=== PATIENT | male | born 1945 | race Caucasian/White ===

== ENCOUNTER 2017-06-06 12:36 | Inpatient (IN) | payer MEDICARE, OTHER ==
[~2017-06-06] VITALS: Ht 162.6 cm; Wt 69.4 kg
[2017-06-06] MEDS ORDERED: IV NS 0.9% 500 ML BAG IV ONE (13:00)
[2017-06-06 13:08] LABS: BASOPHILS % (AUTO) 0.4 % (0.0-2.0); EOSINOPHILS # (AUTO) 0.7 /CMM (0.0-0.7); EOSINOPHILS % (AUTO) 5.7 % (0.0-6.0); HEMATOCRIT 38 % (39-51); HEMOGLOBIN 12.3 g/dL (13.5-17.5); LYMPHOCYTES # (AUTO) 3.9 /CMM (0.8-4.8); LYMPHOCYTES % (AUTO) 32.8 % (20.0-44.0); MEAN CORPUSCULAR HEMOGLOBIN 29 PG (26.0-33.0); MEAN CORPUSCULAR HGB CONC 32 g/dl (31.0-36.0); MEAN CORPUSCULAR VOLUME 90 fL (80-96); MONOCYTES # (AUTO) 0.9 /CMM (0.1-1.30); MONOCYTES % (AUTO) 7.4 % (2.0-12.0); NEUTROPHILS # (AUTO) 6.3 /CMM (1.8-8.9); NEUTROPHILS % (AUTO) 53.7 % (43.0-81.0); PLATELET COUNT (AUTO) 165 /CMM (150-450); RDW COEFFICIENT OF VARIATION 14.1 (11.5-15.0); RED BLOOD CELL COUNT(AUTO) 4.22 MIL/uL (4.5-6.0); WHITE BLOOD COUNT (AUTO) 11.8 K/uL (4.3-11.0)
[2017-06-06] MEDS ORDERED: CEFTRIAXONE 1GM BAG (ER ONLY) 50 ML IV ONE ×2 (13:21→13:30)
[2017-06-06 13:22] LABS: CARBON DIOXIDE 23 mmol/L (21-32); CHLORIDE 103 mmol/L (98-107); CREATININE 1.1 mg/dL (0.6-1.3); GLUCOSE 156 mg/dL (74-106); POTASSIUM 3.9 mmol/L (3.5-5.1); SODIUM SERUM 139 mmol/L (136-145); UREA NITROGEN, BLOOD 9 mg/dL (7-18)
[2017-06-06 13:28] LABS: ALANINE AMINOTRANSFERASE 23 U/L (12-78); ALBUMIN 3.5 g/dL (3.4-5.0); ALKALINE PHOSPHATASE 98 U/L (46-116); ASPARTATE AMINOTRANSFERASE 26 U/L (15-37); BILIRUBIN,DIRECT 0.1 mg/dL (0.0-0.2); BILIRUBIN,TOTAL 0.7 mg/dL (0.2-1.0); TOTAL PROTEIN, SERUM 7.9 g/dL (6.4-8.2)
[2017-06-06 13:30] LABS: TROPONIN I < 0.017 ng/mL (0.00-0.056)
[2017-06-06] MEDS ORDERED: IV NS 0.9% 1,000 ML BAG IV ONE (13:30)
[2017-06-06 13:33] LABS: PROTHROMBIN TIME 10.4 SECS (9.5-12.7)
[2017-06-06 13:51] LABS: THYROID STIMULATING HORMONE 4.323 uIU/mL (0.358-3.74)
[2017-06-06] MEDS ORDERED: METO25TA6 PO (14:53)
[2017-06-06] MEDS ORDERED: NIAC500T2 PO (14:53)
[2017-06-06] MEDS ORDERED: BISA10SU8 RC (14:53)
[2017-06-06] MEDS ORDERED: ASPI81TA2 PO (14:53)
[2017-06-06] MEDS ORDERED: SIMV20TA2 PO (14:53)
[2017-06-06] MEDS ORDERED: MULT-213 PO (14:53)
[2017-06-06] MEDS ORDERED: ACET-2605 PO (14:53)
[2017-06-06] MEDS ORDERED: ACET-868 PO (14:53)
[2017-06-06] MEDS ORDERED: LISI-607 PO (14:53)
[2017-06-06] MEDS ORDERED: OMEP20TA68 PO (14:53)
[2017-06-06] MEDS ORDERED: INSU3INS6 SQ (14:53)
[2017-06-06] MEDS ORDERED: GLIP10TA11 PO (14:53)
[2017-06-06] MEDS ORDERED: SENN-18 PO (14:53)
[2017-06-06] MEDS ORDERED: LEVO50TA8 PO (14:53)
[2017-06-06] MEDS ORDERED: MAGN400O6 PO (14:53)
[2017-06-06] MEDS ORDERED: ACETAMINOPHEN 325 MG TABLET PO PRN (16:00)
[2017-06-06] MEDS ORDERED: ONDANSETRON HCL/PF 4 MG/2 ML VIAL IVP PRN (16:00)
[2017-06-06] MEDS ORDERED: Z GUARD REMEDY 2 OZ OINT TP PRN (16:00)
[2017-06-06] MEDS ORDERED: BISACODYL SUPP (10 MG) 10 MG/SUPP.RECT SUPP.RECT RC PRN (16:00)
[2017-06-06] MEDS ORDERED: DEXTROSE 50%-WATER 50 ML DISP.SYRIN IV PRN (16:30)
[2017-06-06] MEDS: IV NS 0.9% 1,000 ML IV PRN (17:06)
[2017-06-06] MEDS: glipiZIDE 10 MG TABLET PO SCH (17:06)
[2017-06-06] MEDS: METOPROLOL TARTRATE 25 MG TABLET PO SCH (17:06)
[2017-06-06] MEDS: BLOOD SUGAR DIAGNOSTIC 1 EACH STRIP IN SCH ×2 (17:14→23:42)
[2017-06-06 17:30] VITALS: BP 119/68
[2017-06-06] MEDS ORDERED: VANCOMYCIN 1 GM in IV D5W 250 ML IV ONE (18:30)
[2017-06-06] MEDS ORDERED: FEE PK DOSING 1 MIN EA MC ONE (18:41)
[2017-06-06 20:00] VITALS: BP_SYST 117; BP_SYST 122; BP_DIAS 53; BP_DIAS 57
[2017-06-06] MEDS: VANCOMYCIN 0.75 GM in IV D5W 250 ML IV SCH (20:33)
[2017-06-06] MEDS: INSULIN DETEMIR 100 UNIT/ML CARTRIDGE SQ SCH (22:00)
[2017-06-06] MEDS: SIMVASTATIN 20 MG TABLET PO SCH (22:12)
[2017-06-06] MEDS: INSULIN REGULAR, HUMAN 100 UNIT/ML 3 ML VIAL SQ PRN (23:47)
[2017-06-07 00:12] LABS: APPEARANCE,URINE CLEAR (CLEAR); BILIRUBIN,URINE NEGATIVE (NEGATIVE); BLOOD, URINE 2+ Ery/uL (NEGATIVE); COLOR,URINE YELLOW (YELLOW); KETONES,URINE NEGATIVE (NEGATIVE); LEUKOCYTE ESTERASE ,URINE 1+ (NEGATIVE); NITRITE, URINE NEGATIVE (NEGATIVE); PROTEIN,URINE NEGATIVE (NEGATIVE); UGLUCOSE NEGATIVE (NEGATIVE); UROBILINOGEN,URINE 0.2 EU/dL (0.2)
[2017-06-07 00:34] LABS: BACTERIA,URINE None seen /HPF (None Seen); SQUAMOUS EPITHELIAL CELL,UR Few /HPF (None Seen)
[2017-06-07 04:00] VITALS: BP 117/57
[2017-06-07] MEDS: IV NS 0.9% 1,000 ML IV PRN (06:04)
[2017-06-07] MEDS: BLOOD SUGAR DIAGNOSTIC 1 EACH STRIP IN SCH ×4 (06:04→23:39)
[2017-06-07 06:44] LABS: BASOPHILS % (AUTO) 0.4 % (0.0-2.0); EOSINOPHILS # (AUTO) 0.3 /CMM (0.0-0.7); EOSINOPHILS % (AUTO) 4.2 % (0.0-6.0); HEMATOCRIT 35 % (39-51); HEMOGLOBIN 11.5 g/dL (13.5-17.5); LYMPHOCYTES # (AUTO) 2.5 /CMM (0.8-4.8); LYMPHOCYTES % (AUTO) 31.3 % (20.0-44.0); MEAN CORPUSCULAR HEMOGLOBIN 30 PG (26.0-33.0); MEAN CORPUSCULAR HGB CONC 33 g/dl (31.0-36.0); MEAN CORPUSCULAR VOLUME 91 fL (80-96); MONOCYTES # (AUTO) 0.7 /CMM (0.1-1.30); MONOCYTES % (AUTO) 9.1 % (2.0-12.0); NEUTROPHILS # (AUTO) 4.4 /CMM (1.8-8.9); PLATELET COUNT (AUTO) 110 /CMM (150-450)
[2017-06-07 07:10] LABS: ALANINE AMINOTRANSFERASE 22 U/L (12-78); ALBUMIN 3.1 g/dL (3.4-5.0); ALKALINE PHOSPHATASE 81 U/L (46-116); ASPARTATE AMINOTRANSFERASE 28 U/L (15-37); BILIRUBIN,TOTAL 0.5 mg/dL (0.2-1.0); CALCIUM, SERUM 8.1 mg/dL (8.5-10.1); CARBON DIOXIDE 26 mmol/L (21-32); CHLORIDE 108 mmol/L (98-107); CREATININE 0.7 mg/dL (0.6-1.3); GLUCOSE 166 mg/dL (74-106); MAGNESIUM 1.7 mg/dL (1.8-2.4); PHOSPHORUS 3.6 mg/dL (2.5-4.9); POTASSIUM 3.2 mmol/L (3.5-5.1); SODIUM SERUM 143 mmol/L (136-145); TOTAL PROTEIN, SERUM 7.6 g/dL (6.4-8.2); UREA NITROGEN, BLOOD 7 mg/dL (7-18)
[2017-06-07 07:23] LABS: CHOLESTEROL 131 mg/dL (<200); HDL CHOLESTEROL 35 mg/dL (40-60); LDL 76 mg/dL (0-99); THYROID STIMULATING HORMONE 2.737 uIU/mL (0.358-3.74); TRIGLYCERIDES 124 mg/dL (30-150)
[2017-06-07 08:00] VITALS: BP 130/47
[2017-06-07 08:02] LABS: IRON, SERUM 46 ug/dl (50-175); TOTAL IRON BINDING CAPACITY 342 ug/dl (250-450)
[2017-06-07] MEDS: LEVOTHYROXINE SODIUM 50 MCG TABLET PO SCH (08:35)
[2017-06-07] MEDS: SENNOSIDES 8.6 MG TABLET PO SCH (08:35)
[2017-06-07] MEDS: ASPIRIN 81 MG TAB.CHEW PO SCH (08:35)
[2017-06-07] MEDS: glipiZIDE 10 MG TABLET PO SCH ×2 (08:35→16:36)
[2017-06-07] MEDS: PANTOPRAZOLE 40 MG TABLET.DR PO SCH (08:36)
[2017-06-07] MEDS: VANCOMYCIN 0.75 GM in IV D5W 250 ML IV SCH ×2 (08:46→20:03)
[2017-06-07] MEDS: LISINOPRIL (5MG) 5 MG TABLET PO SCH (09:00)
[2017-06-07] MEDS: METOPROLOL TARTRATE 25 MG TABLET PO SCH ×2 (09:00→16:40)
[2017-06-07 12:00] VITALS: BP 127/54
[2017-06-07] MEDS: POTASSIUM CHLORIDE 20 MEQ TAB.PRT.SR PO SCH ×2 (12:00→13:13)
[2017-06-07] MEDS: Magnesium 1GM/D5W 100ML PREMIX 100 ML IV SCH ×2 (12:01→13:13)
[2017-06-07] MEDS: INSULIN REGULAR, HUMAN 100 UNIT/ML 3 ML VIAL SQ PRN (12:08)
[2017-06-07] MEDS: CEFTRIAXONE 1 G in IV D5W 50 ML IV SCH (14:22)
[2017-06-07 16:00] VITALS: BP 121/66
[2017-06-07] MEDS: LACTOBACILLUS RHAMNOSUS GG 1 EACH CAP.SPRINK PO SCH (16:36)
[2017-06-07 20:00] VITALS: BP 130/68
[2017-06-07] MEDS: SIMVASTATIN 20 MG TABLET PO SCH (21:39)
[2017-06-07] MEDS: INSULIN DETEMIR 100 UNIT/ML CARTRIDGE SQ SCH (22:00)
[2017-06-08] MEDS: IV NS 0.9% 1,000 ML IV PRN (05:26)
[2017-06-08] MEDS: BLOOD SUGAR DIAGNOSTIC 1 EACH STRIP IN SCH ×3 (05:30→17:32)
[2017-06-08 07:30] LABS: CALCIUM, SERUM 7.9 mg/dL (8.5-10.1); CARBON DIOXIDE 27 mmol/L (21-32); CHLORIDE 112 mmol/L (98-107); CREATININE 0.7 mg/dL (0.6-1.3); GLUCOSE 86 mg/dL (74-106); MAGNESIUM 2.1 mg/dL (1.8-2.4); POTASSIUM 3.7 mmol/L (3.5-5.1); SODIUM SERUM 146 mmol/L (136-145); UREA NITROGEN, BLOOD 4 mg/dL (7-18)
[2017-06-08 08:00] VITALS: BP 129/58
[2017-06-08] MEDS: LACTOBACILLUS RHAMNOSUS GG 1 EACH CAP.SPRINK PO SCH ×2 (08:36→17:32)
[2017-06-08] MEDS: LEVOTHYROXINE SODIUM 50 MCG TABLET PO SCH (08:36)
[2017-06-08] MEDS: LISINOPRIL (5MG) 5 MG TABLET PO SCH (08:36)
[2017-06-08] MEDS: PANTOPRAZOLE 40 MG TABLET.DR PO SCH (08:36)
[2017-06-08] MEDS: SENNOSIDES 8.6 MG TABLET PO SCH (08:36)
[2017-06-08] MEDS: ASPIRIN 81 MG TAB.CHEW PO SCH (08:36)
[2017-06-08] MEDS: glipiZIDE 10 MG TABLET PO SCH ×2 (08:36→17:32)
[2017-06-08] MEDS: METOPROLOL TARTRATE 25 MG TABLET PO SCH ×2 (08:37→17:00)
[2017-06-08] MEDS: VANCOMYCIN 0.75 GM in IV D5W 250 ML IV SCH (08:44)
[2017-06-08 11:31] LABS: BASOPHILS # (AUTO) 0.1 /CMM (0.0-0.2); BASOPHILS % (AUTO) 0.6 % (0.0-2.0); EOSINOPHILS # (AUTO) 0.6 /CMM (0.0-0.7); EOSINOPHILS % (AUTO) 7.4 % (0.0-6.0); HEMATOCRIT 32 % (39-51); HEMOGLOBIN 10.9 g/dL (13.5-17.5); LYMPHOCYTES # (AUTO) 3.2 /CMM (0.8-4.8); MEAN CORPUSCULAR HEMOGLOBIN 31 PG (26.0-33.0); MEAN CORPUSCULAR HGB CONC 34 g/dl (31.0-36.0); MEAN CORPUSCULAR VOLUME 90 fL (80-96); MONOCYTES # (AUTO) 0.7 /CMM (0.1-1.30); PLATELET COUNT (AUTO) 110 /CMM (150-450); RDW COEFFICIENT OF VARIATION 14.9 (11.5-15.0); RED BLOOD CELL COUNT(AUTO) 3.59 MIL/uL (4.5-6.0); WHITE BLOOD COUNT (AUTO) 8.5 K/uL (4.3-11.0)
[2017-06-08] MEDS: CEFTRIAXONE 1 G in IV D5W 50 ML IV SCH (12:00)
[2017-06-08] MEDS: INSULIN REGULAR, HUMAN 100 UNIT/ML 3 ML VIAL SQ PRN ×2 (12:01→17:33)
[2017-06-08] MEDS ORDERED: CEPH-569 PO (15:04)
[2017-06-08 16:00] VITALS: BP 131/56
[2017-06-08 17:00] VITALS: BP 131/56
== END 2017-06-08 18:30 | DRG 70 ==
LOC: ER 12:37 → TELE 15:32 → MED 06-07 18:02
PROVIDERS: ADMIT Nurse Practitioner Acute Care; ATTEND Nurse Practitioner Acute Care
DX: G93.40 Encephalopathy, unspecified (principal); R53.2 Functional quadriplegia; E87.2 Acidosis; F03.90 Unspecified dementia, unspecified severity, without behavioral disturbance, psychotic disturbance, mood disturbance, and anxiety; E11.9 Type 2 diabetes mellitus without complications; I10 Essential (primary) hypertension; D72.829 Elevated white blood cell count, unspecified; G93.89 Other specified disorders of brain; Z86.73 Personal history of transient ischemic attack (TIA), and cerebral infarction without residual deficits; E03.9 Hypothyroidism, unspecified; E78.5 Hyperlipidemia, unspecified; I25.10 Atherosclerotic heart disease of native coronary artery without angina pectoris; H54.0 Blindness, both eyes; K21.9 Gastro-esophageal reflux disease without esophagitis; I70.0 Atherosclerosis of aorta; K59.00 Constipation, unspecified; M19.90 Unspecified osteoarthritis, unspecified site; Z66 Do not resuscitate; Z79.82 Long term (current) use of aspirin; Z87.440 Personal history of urinary (tract) infections; Z79.899 Other long term (current) drug therapy; Z93.1 Gastrostomy status; Z79.84 Long term (current) use of oral hypoglycemic drugs
CPT/HCPCS: 36415; 70450-TC; 71010-TC; 80048-TC; 80053-TC; 80061-TC; 80076-TC; 80202-TC; 81000-TC; 82962-TC; 83540-TC; 83605-TC; 83735-TC; 84100-TC; 84443-TC; 84484-TC; 85025-TC; 85730-TC; 87040-TC; 87081-TC; 87086-TC; A4606; J0696; J1815; J3370; J3475; J7030; J7040; J7050; J7060; Z7610

== ENCOUNTER 2017-07-16 14:04 | Inpatient (IN) | payer MEDICARE, OTHER ==
[~2017-07-16] VITALS: Ht 170.2 cm; Wt 67.1 kg
[~2017-07-16 14:04] MED LIST: ACET-2605 PO; ACET-868 PO; ASPI81TA2 PO; BISA10SU8 RC; CEPH-569 PO; GLIP10TA11 PO; INSU3INS6 SQ; LEVO50TA8 PO; LISI-607 PO; MAGN400O6 PO; METO25TA6 PO; MULT-213 PO; NIAC500T2 PO; OMEP20TA68 PO; SENN-18 PO; SIMV20TA2 PO
--- NOTE | 2017-07-16 14:19 | NUR ---
PT JENNIFER ([id number]) from [facility] for chief complaint of "more altered than usual" PER EMS, GLUCOSE CHECK READ " HI". PT CLINICAL PRESETNATION UPON ARRIVAL, AVERBAL, WITHDRAWS TO PAIN, NON DIAPHOERETIC, ST ON MONITOR HR 115, WITH GOOD RESP RATE & EFFORT. PER PAPER WORK PROVIDED BY FACILITY , PT IS DNR.
[2017-07-16] MEDS ORDERED: CANA100T PO (14:44)
[2017-07-16] MEDS ORDERED: BLOO-668 IN (14:44)
[2017-07-16] MEDS ORDERED: NA P133E RC (14:44)
[2017-07-16] MEDS ORDERED: INSU100V11 SQ (14:44)
[2017-07-16] MEDS ORDERED: ASCO500T9 PO (14:44)
[2017-07-16] MEDS ORDERED: AMIN30LI4 PO (14:44)
[2017-07-16] MEDS ORDERED: DULA0.75 SQ (14:44)
[2017-07-16] MEDS ORDERED: ZINC220C8 PO (14:44)
--- NOTE | 2017-07-16 15:11 | NUR ---
RAY AT BEDSIDE
--- NOTE | 2017-07-16 15:23 | NUR ---
CALLED [facility] TO GET INFORMATION ABOUT PT, SPOKE WITH GODWIN.
[2017-07-16 15:36] LABS: BASOPHILS # (AUTO) 0.2 /CMM (0.0-0.2); EOSINOPHILS % (AUTO) 0.2 % (0.0-6.0); HEMATOCRIT 48 % (39-51); HEMOGLOBIN 15.6 g/dL (13.5-17.5); LYMPHOCYTES # (AUTO) 4.6 /CMM (0.8-4.8); LYMPHOCYTES % (AUTO) 24.6 % (20.0-44.0); MEAN CORPUSCULAR HEMOGLOBIN 30 PG (26.0-33.0); MEAN CORPUSCULAR HGB CONC 32 g/dl (31.0-36.0); MEAN CORPUSCULAR VOLUME 92 fL (80-96); MONOCYTES # (AUTO) 1.7 /CMM (0.1-1.30); MONOCYTES % (AUTO) 9.1 % (2.0-12.0); NEUTROPHILS # (AUTO) 12.1 /CMM (1.8-8.9); NEUTROPHILS % (AUTO) 65.1 % (43.0-81.0); PLATELET COUNT (AUTO) 184 /CMM (150-450); RDW COEFFICIENT OF VARIATION 14.6 (11.5-15.0); RED BLOOD CELL COUNT(AUTO) 5.27 MIL/uL (4.5-6.0); WHITE BLOOD COUNT (AUTO) 18.6 K/uL (4.3-11.0)
[2017-07-16 15:48] LABS: INR 1.09 (0.87-1.13); PROTHROMBIN TIME 11.3 SECS (9.5-12.7)
[2017-07-16 15:52] LABS: ALANINE AMINOTRANSFERASE 27 U/L (12-78); ALBUMIN 3.5 g/dL (3.4-5.0); ALKALINE PHOSPHATASE 138 U/L (46-116); ASPARTATE AMINOTRANSFERASE 38 U/L (15-37); BILIRUBIN,DIRECT 0.1 mg/dL (0.0-0.2); BILIRUBIN,TOTAL 0.6 mg/dL (0.2-1.0); CALCIUM, SERUM 9.7 mg/dL (8.5-10.1); CARBON DIOXIDE 23 mmol/L (21-32); CHLORIDE 112 mmol/L (98-107); CREATININE 2.2 mg/dL (0.6-1.3); POTASSIUM 4.1 mmol/L (3.5-5.1); SODIUM SERUM 149 mmol/L (136-145); TOTAL PROTEIN, SERUM 9.3 g/dL (6.4-8.2); UREA NITROGEN, BLOOD 45 mg/dL (7-18)
[2017-07-16 15:53] LABS: TROPONIN I 0.188 ng/mL (0.00-0.056)
[2017-07-16 15:54] LABS: GLUCOSE 563 mg/dL (74-106)
--- NOTE | 2017-07-16 16:19 | NUR ---
PAGED FOR ADMISSION
--- NOTE | 2017-07-16 16:38 | NUR ---
RECEIVED CALL BACK FROM , PER GIVE PT TO [facility].
--- NOTE | 2017-07-16 16:39 | NUR ---
[facility] PAGED, DR.VU BRISENO
--- NOTE | 2017-07-16 17:45 | NUR ---
AWAITING FOR BED
--- NOTE | 2017-07-16 18:14 | NUR ---
REPORT GIVEN TO
--- NOTE | 2017-07-16 18:47 | NUR ---
PATIENT TRANSPORTED TO TELE. S
--- NOTE | 2017-07-16 19:25 | NUR ---
CHIEF ANALYTICS OFFICER OPENING NOTES: RECEIVED PT AND IS SITTING UP RIGHT IN BED. PT IS NOT ALERT AND IS NON-VERBAL. PT HAS BILATERAL BLINDNESS. PT SAYS A FEW WORDS BUT SPONTANEOUSLY. PT IS ON TELE MONITOR. CALL LIGHT WITHIN PT'S REACH. BED KEPT IN LOW, LOCKED POSITION, AND SIDE RAILS X 2 UP. NO S/S OF DISTRESS NOTED AT THIS TIME. BREATHING EVEN AND UNLABORED. PT HAS IV ON L WRIST, L FOREARM #20G, AND R HAND 22G. ALL IVS ARE PATENT AND INTACT. WAITING FOR PHARMACY TO VERIFY MEDS. WILL CONTINUE TO MONITOR PT.
--- NOTE | 2017-07-16 19:40 | NUR ---
RN ELIGIBILITY NOTES: CALLED PHARMACY TO VERIFY MED ORDERS. PHARMACY SAID THEY ARE BUSY AND WILL GET IT DONE BEFORE THEY LEAVE. THERE ARE 1700 ORDERS THAT WILL BE LATE ADMIN DUE TO THAT.
[2017-07-16 20:00] VITALS: BP 154/72
--- NOTE | 2017-07-16 22:38 | NUR ---
INSURANCE CUSTOMER SERVICE SPECIALIST NOTE: SPOKE TO DR. ROONEY AND INFORMED HER THAT PATIENT HAS BEEN LETHARGIC THROUGHOUT MY SHIFT AND THAT HE IS ON METOPROLOL. GOT ORDER FOR NG INSERTION AND TO GIVE MED THROUGH NG TUBE.
--- NOTE | 2017-07-16 22:55 | NUR ---
AUTOMATIC PRESSER NOTE: SPOKE TO DR ROONEY AND INFORMED OF BLOOD SUGAR 398 AND WOULD ONLY LIKE TO GIVE LEVEMIR 9 UNITS D/T PT NOT EATING AND BEING LETHARGIC. ALSO, SHE SAID NOT TO COVER THE REGULAR INSULIN JUST LEVEMIR 9 UNITS. ALSO, CONFIRMED THAT ALL MEDS TO BE GIVEN THROUGH NG TUBE.
--- NOTE | 2017-07-16 22:58 | NUR ---
PAINTER SHIPYARD NOTE: IT WAS SCANNED THAT LEVEMIR 18 UNITS WAS ADMINISTERED BUT PER DR. ROONEY, ONLY 9 UNITS OF THAT LEVEMIR IS TO BE GIVEN.
[2017-07-17] VITALS (7 sets, daily range): BP systolic 134–151; BP diastolic 62–75
--- NOTE | 2017-07-17 00:41 | NUR ---
SAUTE CHEF NOTES: DR. ROONEY ON FLOOR AND ATTEMPTED TO INSERT NG TUBE. ALSO, WAS UNSUCCESSFUL RNS TRIED TO INSERT NG TUBE PRIOR AND WAS UNSUCCESSFUL WELL. GOT ORDER FOR METOPROLOL 5MG IV Q6H FOR SBP >180 AND HR >100. OKAY TO NON ADMIN [address] ROONEY. ALSO, INFORMED HER ABOUT POLST AND FOR PT'S DNR STATUS AND OKAYED IT. WILL HAVE ANOTHER RN SIGN.
--- NOTE | 2017-07-17 06:38 | NUR ---
HVAC FIELD SERVICE TECHNICIAN NOTES: INFORMED DR. ROONEY ABOUT BLOOD SUGAR THIS MORNING OF 322. REMINDED DR. RIVERA THAT PT HAS A SWALLOW EVAL AT 8AM TODAY AND HAS NOT BEEN EATING OR TAKING ANYTHING BY MOUTH THROUGHOUT MY SHIFT. PT HAS BEEN LETHARGIC THROUGHOUT MY SHIFT. GOT ORDER TO GIVE HALF OF THE INTENDED DOSE FOR 322 WHICH IS 16 UNITS. THEREFORE, I WILL ONLY ADMINISTER 8 UNITS.
--- NOTE | 2017-07-17 07:10 | NUR ---
CLAY MINE CUTTING MACHINE OPERATOR CLOSING NOTES: ALL NEEDS WERE ATTENDED AND ANTICIPATED FOR. PT IS STILL NON-VERBAL BUT WILL NOD OR RESPOND IF SPOKEN TO IN UKRAINIAN. PT IS IN SEMI-CHIU'S POSITION. PT IS ON TELE MONITOR AND IS SR 92. CALL LIGHT WITHIN PT'S REACH. BED KEPT IN LOW, LOCKED POSITION, AND SIDE RAILS X 2 UP. NO S/S OF DISTRESS NOTED AT THIS TIME. BREATHING EVEN AND UNLABORED. PT HAS IV ON L WRIST, L FOREARM #20G, AND R HAND 22G. ALL IVS ARE PATENT AND INTACT. PT IS CURRENTLY BEING INFUSED WITH IV D5 1/2 NS AT 75ML/ HR. ENDORSED TO AM NURSE FOR ASHLEY.
[2017-07-17 07:28] LABS: ALANINE AMINOTRANSFERASE 28 U/L (12-78); ALKALINE PHOSPHATASE 124 U/L (46-116); ASPARTATE AMINOTRANSFERASE 38 U/L (15-37); BILIRUBIN,TOTAL 0.6 mg/dL (0.2-1.0); CALCIUM, SERUM 8.6 mg/dL (8.5-10.1); CARBON DIOXIDE 23 mmol/L (21-32); CHLORIDE 122 mmol/L (98-107); CREATININE 1.2 mg/dL (0.6-1.3); MAGNESIUM 2.1 mg/dL (1.8-2.4); PHOSPHORUS 4.2 mg/dL (2.5-4.9); POTASSIUM 3.7 mmol/L (3.5-5.1); TOTAL PROTEIN, SERUM 8.1 g/dL (6.4-8.2); UREA NITROGEN, BLOOD 27 mg/dL (7-18)
--- NOTE | 2017-07-17 07:30 | NUR ---
straight knife machine cutter Initial Notes: Received patient resting in bed. Patient not alert and non-verbal. Patient has bilateral blindness. Non-labored breathing noted. No facial grimacing noted. Patient states a few words and is arousable to name and touch. Patient on Tele monitoring with sinus rhythem noted. Call light within patients reach. Bed in lowest locked position. Will continue to monitor patient.
[2017-07-17 07:44] LABS: GLUCOSE 376 mg/dL (74-106); SODIUM SERUM 160 mmol/L (136-145)
--- NOTE | 2017-07-17 07:45 | NUR ---
RN Notes: I was contacted by lab: sodium 160 and blood sugar 376. Spoke to charge nurse,Terrance. We are awaiting assigned doctor to report. D5 half NS is stopped. Patient refusing to eat, and has a swallow evaluation today at 0800.
--- NOTE | 2017-07-17 07:45 | NUR ---
RN Notes: I was contacted by lab: sodium 160 and blood sugar 376. Spoke to charge nurse,Terrance. We are awaiting assigned doctor to report. D5 half NS is stopped. PRN suction set up at bedside. HOB elevated. Bed in lowest position. Will continue to monitor. Patient refusing to eat, and has a swallow evaluation today at 0800.
[2017-07-17 08:04] LABS: BASOPHILS % (AUTO) 0.3 % (0.0-2.0); EOSINOPHILS # (AUTO) 0.2 /CMM (0.0-0.7); EOSINOPHILS % (AUTO) 1.1 % (0.0-6.0); HEMATOCRIT 42 % (39-51); HEMOGLOBIN 13.3 g/dL (13.5-17.5); LYMPHOCYTES # (AUTO) 4.1 /CMM (0.8-4.8); LYMPHOCYTES % (AUTO) 27.2 % (20.0-44.0); MEAN CORPUSCULAR HEMOGLOBIN 29 PG (26.0-33.0); MEAN CORPUSCULAR HGB CONC 32 g/dl (31.0-36.0); MEAN CORPUSCULAR VOLUME 92 fL (80-96); MONOCYTES # (AUTO) 0.9 /CMM (0.1-1.30); MONOCYTES % (AUTO) 5.9 % (2.0-12.0); NEUTROPHILS # (AUTO) 9.8 /CMM (1.8-8.9); NEUTROPHILS % (AUTO) 65.5 % (43.0-81.0); PLATELET COUNT (AUTO) 132 /CMM (150-450); RDW COEFFICIENT OF VARIATION 15.2 (11.5-15.0); RED BLOOD CELL COUNT(AUTO) 4.55 MIL/uL (4.5-6.0); WHITE BLOOD COUNT (AUTO) 14.9 K/uL (4.3-11.0)
--- NOTE | 2017-07-17 08:42 | NUR ---
RN Notes: Dr. Hodge notified and aware of patient's lab values.
--- NOTE | 2017-07-17 09:45 | NUR ---
RN Notes: Morning medications not administered. Patient unable to swallow. Awaiting for a swallow evaluation. MD aware.
--- NOTE | 2017-07-17 11:23 | NUR ---
RN Notes: Central supply contacted for D5 W 1000 ml at 0945 at 1030. Spoke to Don at 1100. They will be bringing the bags up
--- NOTE | 2017-07-17 16:48 | NUR ---
RN Notes: 1700 medication not administered. Patient unable to swallow. Spoke with earlier regarding a PEG insertion tomorrow. Patient's sister gave consent. Patient to be NPO post midnight.
--- NOTE | 2017-07-17 19:10 | NUR ---
computer game tester Closing Notes: Patient resting in bed. Patient awake,and spoke a few words in east timorese. Patient has bilateral blindness. Non-labored breathing noted. No facial grimacing noted. Patient on Tele monitoring with sinus rhythem noted. Call light within patients reach. Patient turned and repositioned every 2 hours. Patient kept clean and dry. Bed in lowest locked position. Endorsed to next shift.
--- NOTE | 2017-07-17 19:25 | NUR ---
TELE/RN NOTES RECEIVED PT. LYING IN BED RESTING. PT. IS NON-VERBAL. BREATHING EVEN AND UNLABORED ON ROOM AIR. NO SOB, RESPIRATORY DISTRESS OR S/S OF PAIN NOTED AT THIS TIME. PT. WITH EXTERNAL SHOE MAKER PRESENT AND INTACT. CURRENT RHYTHM = SINUS RHYTHM HR 76. PT. WITH LEFT FOREARM 20 GAUGE PERIPHERAL IV PRESENT, PATENT AND INTACT ADMINISTERING TO PT. D5W @ 75 ML/HR. PT. WITH RIGHT HAND 22 GAUGE IV SALINE LOCK PRESENT, PATENT AND INTACT. BED LOCKED AND IN LOWEST POSITION, SIDE RAILS UP X2, CALL LIGHT WITHIN REACH, WILL CONTINUE TO MONITOR.
[2017-07-18] VITALS (7 sets, daily range): BP systolic 130–150; BP diastolic 66–89
[2017-07-18 06:29] LABS: BASOPHILS % (AUTO) 0.3 % (0.0-2.0); EOSINOPHILS # (AUTO) 0.4 /CMM (0.0-0.7); EOSINOPHILS % (AUTO) 3.3 % (0.0-6.0); HEMATOCRIT 43 % (39-51); HEMOGLOBIN 13.8 g/dL (13.5-17.5); LYMPHOCYTES # (AUTO) 3.6 /CMM (0.8-4.8); LYMPHOCYTES % (AUTO) 28.4 % (20.0-44.0); MEAN CORPUSCULAR HEMOGLOBIN 30 PG (26.0-33.0); MEAN CORPUSCULAR HGB CONC 32 g/dl (31.0-36.0); MEAN CORPUSCULAR VOLUME 93 fL (80-96); MONOCYTES # (AUTO) 0.9 /CMM (0.1-1.30); MONOCYTES % (AUTO) 7.1 % (2.0-12.0); NEUTROPHILS # (AUTO) 7.8 /CMM (1.8-8.9); NEUTROPHILS % (AUTO) 60.9 % (43.0-81.0); PLATELET COUNT (AUTO) 110 /CMM (150-450); RDW COEFFICIENT OF VARIATION 15.1 (11.5-15.0); RED BLOOD CELL COUNT(AUTO) 4.61 MIL/uL (4.5-6.0); WHITE BLOOD COUNT (AUTO) 12.8 K/uL (4.3-11.0)
[2017-07-18 06:54] LABS: CALCIUM, SERUM 8.9 mg/dL (8.5-10.1); CARBON DIOXIDE 27 mmol/L (21-32); CHLORIDE 119 mmol/L (98-107); GLUCOSE 248 mg/dL (74-106); POTASSIUM 3.1 mmol/L (3.5-5.1); UREA NITROGEN, BLOOD 16 mg/dL (7-18)
--- NOTE | 2017-07-18 06:59 | NUR ---
TELE/RN NOTES PT. IS LYING IN BED RESTING. BREATHING EVEN AND UNLABORED ON ROOM AIR. NO SOB, RESPIRATORY DISTRESS OR S/S OF PAIN NOTED AT THIS TIME. PT. WITH EXTERNAL COLOR DRUM WORKER PRESENT AND INTACT. CURRENT RHYTHM = SINUS RHYTHM HR 65. PT. WITH LEFT FOREARM 20 GAUGE PERIPHERAL IV PRESENT, PATENT AND INTACT ADMINISTERING TO PT. D5W @ 75 ML/HR. ALL PT. NEEDS MET. PT. OFFLOADED. TURNED AND REPOSITIONED Q2H AND NEEDED. BED LOCKED AND IN LOWEST POSITION, SIDE RAILS UP X2, CALL LIGHT WITHIN REACH, WILL ENDORSE TO DAYSHIFT NURSE FOR CONTINUITY OF CARE.
[2017-07-18 07:01] LABS: SODIUM SERUM 156 mmol/L (136-145)
--- NOTE | 2017-07-18 07:01 | NUR ---
TELE/RN NOTES RECEIVED CRITICAL LAB RESULT OF NA 156. PT. SODIUM LEVEL IS SLIGHTLY DECREASED FROM YESTERDAYS LEVEL OF 160. WILL ENDORSE TO DAYSHIFT NURSE TO NOTIFY EPIC [employer] MEMBER.
--- NOTE | 2017-07-18 07:10 | NUR ---
RN Initial Notes: Patient resting in bed. Nonverbal. Arousable to name and touch. Non-labored breathing on room air. Patient on telemetry monitoring with sinus rhythm noted. No facial grimacing noted. IV site patent and intact. Bed in lowest position. HOB in semi resendez. Airway is patent. No coughing noted. Bed in lowest locked position. Will continue to monitor.
--- NOTE | 2017-07-18 09:00 | NUR ---
RN Notes Blood sugar 191. Insulin held while waiting for D5w, patient is NPO. Contacted central and pharmacy. MD ordered to administer half of the insulin dosages today since patient will be NPO.
--- NOTE | 2017-07-18 09:00 | NUR ---
RN Notes Blood sugar 191. Insulin held while waiting for D5w, patient is NPO. Contacted central and pharmacy. MD ordered to administer half of the insulin Levemir dosages at 0900 today since patient will be NPO.
--- NOTE | 2017-07-18 09:00 | NUR ---
RN Notes: Dr. Hodge aware of sodium lab results as well as results of active MRSA in Nares
--- NOTE | 2017-07-18 09:01 | NUR ---
RN Notes Blood sugar 191. Insulin held while waiting for D5w, patient is NPO. Contacted central and pharmacy. MD ordered to administer half of the insulin Levemir dosage at 0900 today since patient will be NPO.
--- NOTE | 2017-07-18 18:30 | NUR ---
RN Notes: Potassium bag at 1500 not administered. Pharmacy entered a new order of 50 ml that was administered at 1821. 4 bags were administered in total of 200 ml per pharmacy dosing.
--- NOTE | 2017-07-18 19:10 | NUR ---
RN Closing Notes: Patient resting in bed. Nonverbal. Arousable to name and touch. Non-labored breathing on room air. Patient on telemetry monitoring with sinus rhythm noted. No facial grimacing noted. IV site patent and intact. Bed in lowest position. HOB in semi resendez. Airway is patent. No coughing noted. Bed in lowest locked position. Patient turned and repositioned throughout shift every 2 hours. Patient kept clean and dry. Endorsed to next shift.
--- NOTE | 2017-07-18 19:20 | NUR ---
TELE/RN NOTES PT. IS LYING IN BED RESTING. BREATHING EVEN AND UNLABORED ON ROOM AIR. NO SOB, RESPIRATORY DISTRESS OR S/S OF PAIN NOTED AT THIS TIME. PT. WITH EXTERNAL APPRAISER ART PRESENT AND INTACT. CURRENT RHYTHM = SINUS RHYTHM HR 61. PT. WITH RIGHT FOREARM 22 GAUGE PERIPHERAL IV PRESENT, PATENT AND INTACT ADMINISTERING TO PT. D5W @ 75 ML/HR. BED LOCKED AND IN LOWEST POSITION, SIDE RAILS UP X2, CALL LIGHT WITHIN REACH, WILL CONTINUE TO MONITOR.
[2017-07-19] VITALS (9 sets, daily range): BP systolic 115–157; BP diastolic 57–77
[2017-07-19 06:37] LABS: BASOPHILS % (AUTO) 0.4 % (0.0-2.0); EOSINOPHILS # (AUTO) 0.3 /CMM (0.0-0.7); EOSINOPHILS % (AUTO) 3.2 % (0.0-6.0); HEMATOCRIT 39 % (39-51); HEMOGLOBIN 12.8 g/dL (13.5-17.5); LYMPHOCYTES # (AUTO) 3.8 /CMM (0.8-4.8); MEAN CORPUSCULAR HEMOGLOBIN 30 PG (26.0-33.0); MEAN CORPUSCULAR HGB CONC 33 g/dl (31.0-36.0); MEAN CORPUSCULAR VOLUME 92 fL (80-96); MONOCYTES # (AUTO) 0.6 /CMM (0.1-1.30); MONOCYTES % (AUTO) 5.9 % (2.0-12.0); NEUTROPHILS % (AUTO) 55.5 % (43.0-81.0); PLATELET COUNT (AUTO) 117 /CMM (150-450); RDW COEFFICIENT OF VARIATION 15.3 (11.5-15.0); RED BLOOD CELL COUNT(AUTO) 4.26 MIL/uL (4.5-6.0); WHITE BLOOD COUNT (AUTO) 10.8 K/uL (4.3-11.0)
--- NOTE | 2017-07-19 06:49 | NUR ---
TELE/RN NOTES PT. IS LYING IN BED RESTING. BREATHING EVEN AND UNLABORED ON ROOM AIR. NO SOB, RESPIRATORY DISTRESS OR S/S OF PAIN NOTED AT THIS TIME. PT. WITH EXTERNAL APPLIER PRESENT AND INTACT. CURRENT RHYTHM = SINUS RHYTHM HR 64. PT. WITH RIGHT FOREARM 22 GAUGE PERIPHERAL IV PRESENT, PATENT AND INTACT ADMINISTERING TO PT. D5W @ 75 ML/HR. PT. REMAINS NPO. PT. IS SCHEDULED FOR PEG INSERTION TODAY AT 1:30PM. ALL PT. NEEDS MET. PT. TURNED AND REPOSITIONED Q2H AND NEEDED. BED LOCKED AND IN LOWEST POSITION, SIDE RAILS UP X2, CALL LIGHT WITHIN REACH, WILL ENDORSE TO DAYSHIFT NURSE FOR CONTINUITY OF CARE.
[2017-07-19 07:07] LABS: CALCIUM, SERUM 8.7 mg/dL (8.5-10.1); CARBON DIOXIDE 26 mmol/L (21-32); CHLORIDE 116 mmol/L (98-107); CREATININE 0.9 mg/dL (0.6-1.3); GLUCOSE 255 mg/dL (74-106); POTASSIUM 3.8 mmol/L (3.5-5.1); SODIUM SERUM 153 mmol/L (136-145); UREA NITROGEN, BLOOD 16 mg/dL (7-18)
--- NOTE | 2017-07-19 07:24 | NUR ---
AM RN NOTE Received patient sleeping comfortably in his bed no acute distress noted. Resp even and non-labored. On tele monitor, SR. IV site intact and patent. On NPO status for PEG placement today. Bed in low locked position. Will continue to monitor.
--- NOTE | 2017-07-19 08:37 | NUR ---
AM RN NOTE Pt seen by Dr. Le (Tool Straightener) with new order to D/C telemetry.
--- NOTE | 2017-07-19 12:45 | NUR ---
AM RN NOTE UA sample obtained as ordered per .
--- NOTE | 2017-07-19 13:20 | NUR ---
AM RN NOTE Patient left for PEG placement to OR as accompanied by OR staff.
[2017-07-19 15:15] LABS: APPEARANCE,URINE CLEAR (CLEAR); BILIRUBIN,URINE NEGATIVE (NEGATIVE); BLOOD, URINE TRACE-INTA Ery/uL (NEGATIVE); COLOR,URINE YELLOW (YELLOW); KETONES,URINE NEGATIVE (NEGATIVE); LEUKOCYTE ESTERASE ,URINE NEGATIVE (NEGATIVE); NITRITE, URINE NEGATIVE (NEGATIVE); PH,URINE 5.5 (5.0-8.0); PROTEIN,URINE TRACE mg/dl (NEGATIVE); UGLUCOSE 3+ mg/dL (NEGATIVE); UROBILINOGEN,URINE 0.2 EU/dL (0.2)
--- NOTE | 2017-07-19 15:15 | NUR ---
AM RN NOTE Patient came back from OR as accompanied by OR staff. Pt awake, A/O X1. GT in place and site intact. New orders given by Dr. Felix noted and carried out. Will continue to monitor. V/S BP149/77 T98.0 P50 R20 PA0/10 O2 sat 98% at O2 2L/min via NC. Addendum: 07/19/17 at 1831 by NICHOLE CARLSON RN add to above note Slight dry blood noted at GT site.
[2017-07-19 15:47] LABS: CLINITEST,URINE 3
[2017-07-19 15:48] LABS: BACTERIA,URINE None seen /HPF (None Seen); SQUAMOUS EPITHELIAL CELL,UR Few /HPF (None Seen); URIC ACID CRYSTALS,URINE Many /HPF (None Seen); WBC,URINE 0-2 /HPF (0-3)
--- NOTE | 2017-07-19 18:31 | NUR ---
AM RN NOTE Patient resting in his bed, resp even and non-labored. Pt IV site was noted with leakage, re-inserted new site on LFA #22 X1 attempt. Continue on IV fluids. GT placement checked and Meds given by GT as ordered. GT site cleaned due to dry blood on site. Will continue to monitor and endorse care to next shift.
--- NOTE | 2017-07-19 19:30 | NUR ---
MS/RN RECEIVE PATIENT AWAKE, NON VERBALLY RESPONSIVE, COMFORTABLE, APPEAR COMFORTABLE, NO DISTRESS NOTED. PATIENT IS S/P GT PLACEMENT. WILL MONITOR.
--- NOTE | 2017-07-19 22:00 | NUR ---
MS/RN PATIENT IS SLEEPING AT THIS TIME, AROUSABLE, APPEAR COMFORTABLE, NO SIGNS OF DISTRESS NOTED, CALL LIGHT IN REACH. WILL CONTINUE TO MONITOR.
--- NOTE | 2017-07-20 06:14 | NUR ---
MS/RN STILL SLEEPING, AROUSABLE, APPEAR COMFORTABLE, NO CHANGE IN CONDITION. ALL NEEDS ATTENDED AT THIS TIME. WILL CONTINUE TO MONITOR.
[2017-07-20 06:49] LABS: CALCIUM, SERUM 8.4 mg/dL (8.5-10.1); CARBON DIOXIDE 27 mmol/L (21-32); CHLORIDE 112 mmol/L (98-107); CREATININE 0.9 mg/dL (0.6-1.3); GLUCOSE 178 mg/dL (74-106); SODIUM SERUM 147 mmol/L (136-145); UREA NITROGEN, BLOOD 11 mg/dL (7-18)
--- NOTE | 2017-07-20 07:30 | NUR ---
RECEIVED PT. IN AM AWAKE,ORIENTED X1NON VERBAL.VS STABLE.
[2017-07-20 08:06] VITALS: BP 121/56
--- NOTE | 2017-07-20 09:30 | NUR ---
CHYNA KAPOOR IN TO SEE PT.
--- NOTE | 2017-07-20 15:40 | NUR ---
TUBE FEEDING HOOKED UP AND RATE SET AT 20 ML PER HR. IV STILL INFUSING.TAPPER HAND IN EARLIER TO SEE PT.SCANT AMT. SEROUS SANG. DRAINAGE AT G-TUBE SITE.
[2017-07-20 16:00] VITALS: BP 123/53
--- NOTE | 2017-07-20 16:40 | NUR ---
POTASSIUM REPLACEMENT PER G-TUBE.
--- NOTE | 2017-07-20 19:30 | NUR ---
MS/RN RECEIVE PATIENT APPEAR SLEEPING, EASILY AROUSABLE, APPEAR COMFORTABLE, NO SIGNS OF DISTRESS NOTED, HOB ELEVATED, GT FEEDING INFUSING, IVF INFUSING, CALL LIGHT IN REACH. WILL MONITOR.
[2017-07-20 20:00] VITALS: BP 124/63
--- NOTE | 2017-07-21 05:58 | NUR ---
MS/RN PATIENT STILL SLEEPING, AROUSABLE, APPEAR COMFORTABLE, GT FEEDING INFUSING, NO RESIDUAL NOTED HOB ELEVATED. ALL NEEDS ATTENDED AT THIS TIME. WILL CONTINUE TO MONITOR.
[2017-07-21 07:24] LABS: BASOPHILS % (AUTO) 0.3 % (0.0-2.0); EOSINOPHILS # (AUTO) 0.4 /CMM (0.0-0.7); EOSINOPHILS % (AUTO) 3.6 % (0.0-6.0); HEMATOCRIT 36 % (39-51); HEMOGLOBIN 11.4 g/dL (13.5-17.5); LYMPHOCYTES # (AUTO) 3.2 /CMM (0.8-4.8); MEAN CORPUSCULAR HEMOGLOBIN 30 PG (26.0-33.0); MEAN CORPUSCULAR HGB CONC 32 g/dl (31.0-36.0); MEAN CORPUSCULAR VOLUME 92 fL (80-96); MONOCYTES # (AUTO) 0.9 /CMM (0.1-1.30); MONOCYTES % (AUTO) 7.2 % (2.0-12.0); NEUTROPHILS # (AUTO) 7.8 /CMM (1.8-8.9); NEUTROPHILS % (AUTO) 62.9 % (43.0-81.0); PLATELET COUNT (AUTO) 100 /CMM (150-450); RDW COEFFICIENT OF VARIATION 14.7 (11.5-15.0); RED BLOOD CELL COUNT(AUTO) 3.86 MIL/uL (4.5-6.0); WHITE BLOOD COUNT (AUTO) 12.4 K/uL (4.3-11.0)
[2017-07-21 07:30] LABS: CALCIUM, SERUM 7.8 mg/dL (8.5-10.1); CARBON DIOXIDE 25 mmol/L (21-32); CHLORIDE 111 mmol/L (98-107); CREATININE 0.9 mg/dL (0.6-1.3); GLUCOSE 172 mg/dL (74-106); POTASSIUM 3.3 mmol/L (3.5-5.1); SODIUM SERUM 144 mmol/L (136-145); UREA NITROGEN, BLOOD 12 mg/dL (7-18)
--- NOTE | 2017-07-21 07:30 | NUR ---
RECEIVED PT. IN AM,QUIET,TFEEDING INFUSING AT 20 ML PER HR.IV FLUIDS RUNNING AT 75 ML PER HR.SIDERAILS UP REMAINS IN ISOL.
[2017-07-21 08:00] VITALS: BP 120/53
--- NOTE | 2017-07-21 09:00 | NUR ---
TUBE FEEDING RATE TO 35 ML PER HR.
--- NOTE | 2017-07-21 14:00 | NUR ---
POTASSIUM REPLACEMENT WITH KLOR-CON PER G-TUBE.
--- NOTE | 2017-07-21 15:00 | NUR ---
RN CONSULTED HARNESS MENDER FAR T- FEED. RATE.
[2017-07-21 16:00] VITALS: BP 107/51
--- NOTE | 2017-07-21 17:05 | NUR ---
RN INCREASED HOURLY TUBE FEEDING RATE TO 45 ML PER HOUR.
[2017-07-21 17:40] VITALS: BP 107/51
--- NOTE | 2017-07-21 18:00 | NUR ---
PT. REFUSED WILMA ACCU-CHECK WELL DC PHOTOS,FIGHTING WITH NURSE.
--- NOTE | 2017-07-21 18:40 | NUR ---
REPORT CALLED TO FACILITY.RN SPOKE WITH SHALOM NASH HERE AND REPORT TO CNC PROGRAMMER.HEP LOCK OUT.G-TUBE CLAMPED.
== END 2017-07-21 19:40 | DRG 871 ==
LOC: ER 14:05 → TELE 18:12 → MED 07-19 08:30
PROVIDERS: ADMIT Family Medicine; ATTEND Family Medicine
PROC: 0DH63UZ Insertion of Feeding Device into Stomach, Percutaneous Approach (ICD-10-PCS; principal; 2017-07-19 13:45)
PROC: 0DB64ZX Excision of Stomach, Percutaneous Endoscopic Approach, Diagnostic (ICD-10-PCS; 2017-07-19 13:45)
DX: A41.9 Sepsis, unspecified organism (principal); I21.4 Non-ST elevation (NSTEMI) myocardial infarction; E43 Unspecified severe protein-calorie malnutrition; G93.41 Metabolic encephalopathy; E87.0 Hyperosmolality and hypernatremia; E87.2 Acidosis; R53.2 Functional quadriplegia; R13.10 Dysphagia, unspecified; F03.90 Unspecified dementia, unspecified severity, without behavioral disturbance, psychotic disturbance, mood disturbance, and anxiety; G93.89 Other specified disorders of brain; N39.0 Urinary tract infection, site not specified; E11.65 Type 2 diabetes mellitus with hyperglycemia; E86.0 Dehydration; R65.20 Severe sepsis without septic shock; E03.9 Hypothyroidism, unspecified; E78.5 Hyperlipidemia, unspecified; E87.6 Hypokalemia; I10 Essential (primary) hypertension; I25.10 Atherosclerotic heart disease of native coronary artery without angina pectoris; K59.00 Constipation, unspecified; M19.90 Unspecified osteoarthritis, unspecified site; R47.02 Dysphasia; Z79.82 Long term (current) use of aspirin; K21.9 Gastro-esophageal reflux disease without esophagitis; Z79.899 Other long term (current) drug therapy; Z87.440 Personal history of urinary (tract) infections; Z79.4 Long term (current) use of insulin; Z22.322 Carrier or suspected carrier of Methicillin resistant Staphylococcus aureus
CPT/HCPCS: 36415; 43235; 43246; 70450-TC; 71010-TC; 80048-TC; 80053-TC; 80076-TC; 81000-TC; 82962-TC; 83605-TC; 83735-TC; 84100-TC; 84443-TC; 84484-TC; 85025-TC; 85730-TC; 87040-TC; 87081-TC; 87086-TC; 88305-TC; 88313-TC; 88342; 92611-TC; A6403; J0690; J0696; J1815; J2543; J2704; J3370; J3480; J3490; J7030; J7060; J7070; Z7610

== ENCOUNTER 2017-07-27 01:22 | Inpatient (IN) | payer MEDICARE, OTHER ==
[~2017-07-27] VITALS: Ht 177.8 cm; Wt 70.4 kg
[~2017-07-27 01:22] MED LIST changes: +ACET-2605 GT; -ACET-2605 PO; +ACET-868 GT; -ACET-868 PO; +AMIN30LI4 GT; +ASCO500T9 GT; +ASPI81TA2 GT; -ASPI81TA2 PO; +BLOO-668 IN; +CANA100T GT; -CEPH-569 PO; +DULA0.75 SQ; +GLIP10TA11 GT; -GLIP10TA11 PO; +INSU100V11 SQ; +LEVO50TA8 GT; -LEVO50TA8 PO; +LISI-607 GT; -LISI-607 PO; +MAGN400O6 GT; -MAGN400O6 PO; +METO25TA6 GT; -METO25TA6 PO; +MULT-213 GT; -MULT-213 PO; +NA P133E RC; +NIAC500T2 GT; -NIAC500T2 PO; +OMEP20TA68 GT; -OMEP20TA68 PO; +SENN-18 GT; -SENN-18 PO; +SIMV20TA2 GT; -SIMV20TA2 PO; +ZINC220C8 GT
--- NOTE | 2017-07-27 01:30 | NUR ---
72 YO FEMALE BB RA FROM [facility]. PT IS ALERTX 0, NON VERBAL, PER EMS, [facility] CALLED 911 FOR HYPER GYLCEMIA. PT GOWNED, PLACED ONC ARDIAC MONITOR. AWAITING ORDERS FROM PROVIDER, WILL CONTINUE TO MONITOR
--- NOTE | 2017-07-27 01:34 | NUR ---
BG 529. MD EAST NOTIFIED
--- NOTE | 2017-07-27 01:35 | NUR ---
pt spo2 is noted at 80% NC, placed pt on non rebreather at 15 L/hr. Pt spo2 now at 95%, notified
--- NOTE | 2017-07-27 01:55 | NUR ---
attempted to hare cath patient, hit ressitence about 2 cm into urethra. charge nurse manny attempted and hit the same resistance. notified
[2017-07-27 02:24] LABS: BASOPHILS # (AUTO) 0.1 /CMM (0.0-0.2); BASOPHILS % (AUTO) 0.7 % (0.0-2.0); EOSINOPHILS # (AUTO) 0.1 /CMM (0.0-0.7); EOSINOPHILS % (AUTO) 0.5 % (0.0-6.0); HEMATOCRIT 44 % (39-51); HEMOGLOBIN 13.7 g/dL (13.5-17.5); LYMPHOCYTES # (AUTO) 3.8 /CMM (0.8-4.8); MEAN CORPUSCULAR HEMOGLOBIN 29 PG (26.0-33.0); MEAN CORPUSCULAR HGB CONC 32 g/dl (31.0-36.0); MEAN CORPUSCULAR VOLUME 91 fL (80-96); MONOCYTES # (AUTO) 1.8 /CMM (0.1-1.30); MONOCYTES % (AUTO) 9.6 % (2.0-12.0); NEUTROPHILS # (AUTO) 13.1 /CMM (1.8-8.9); NEUTROPHILS % (AUTO) 69.2 % (43.0-81.0); PLATELET COUNT (AUTO) 185 /CMM (150-450); RDW COEFFICIENT OF VARIATION 15.3 (11.5-15.0); RED BLOOD CELL COUNT(AUTO) 4.79 MIL/uL (4.5-6.0); WHITE BLOOD COUNT (AUTO) 18.9 K/uL (4.3-11.0)
--- NOTE | 2017-07-27 02:34 | NUR ---
RT AT BED SIDE FOR ABG
--- NOTE | 2017-07-27 02:35 | NUR ---
1500ml NS bolus finished, SPB remains in the 90's. notified
[2017-07-27 02:39] LABS: INR 1.24 (0.87-1.13); PROTHROMBIN TIME 13.4 SECS (9.5-12.7)
--- NOTE | 2017-07-27 02:39 | NUR ---
started second liter NS per MD Romero for hypotension. will continue to monitor
[2017-07-27 02:42] LABS: ALANINE AMINOTRANSFERASE 29 U/L (12-78); ALBUMIN 2.6 g/dL (3.4-5.0); ALKALINE PHOSPHATASE 156 U/L (46-116); ASPARTATE AMINOTRANSFERASE 54 U/L (15-37); BILIRUBIN,DIRECT 0.1 mg/dL (0.0-0.2); BILIRUBIN,TOTAL 0.6 mg/dL (0.2-1.0); CALCIUM, SERUM 8.5 mg/dL (8.5-10.1); CARBON DIOXIDE 24 mmol/L (21-32); CHLORIDE 102 mmol/L (98-107); CREATININE 2.4 mg/dL (0.6-1.3); POTASSIUM 4.5 mmol/L (3.5-5.1); SODIUM SERUM 138 mmol/L (136-145); TOTAL PROTEIN, SERUM 8.2 g/dL (6.4-8.2); UREA NITROGEN, BLOOD 63 mg/dL (7-18)
[2017-07-27 02:43] LABS: TROPONIN I 0.251 ng/mL (0.00-0.056)
[2017-07-27 02:45] LABS: GLUCOSE 566 mg/dL (74-106)
--- NOTE | 2017-07-27 02:46 | NUR ---
titrated opt oxygen to 10l/hr simple face mask. spo2 remains in 95%. MD notified
[2017-07-27 02:49] LABS: ABG BASE EXCESS -7.2 mmol/L; ABG OXYGEN SATURATION 96.2 % (92.0-98.5); ABG PCO2 28.4 mmHg (35.0-45.0); ABG PH 7.384 (7.350-7.450); ABG PO2 91.7 mmHg (75.0-100.0); AaDO2 448.9 mmHg; COHb 0.1 % (0.5-1.5); MetHb 0.4 % (0.0-1.5); O2Hb 95.7 % (94.0-97.0); SITE, ABG Left Brachial; VENT MODE, BG 15L NRB
--- NOTE | 2017-07-27 03:16 | NUR ---
Liter finished, BP is now 99/56, md notified Pt fever has gone down to 100.5 and is no longer tachycardic rate 79. Per md Romero, Md Daniels spoke with Md Romero, Md Daniels Acknowledge the VS after fluid resusitation and agrees to Tele admission.
[2017-07-27 03:40] VITALS: BP 122/57
--- NOTE | 2017-07-27 03:40 | NUR ---
PHOTOGRAPHY TEACHER OPENING NOTES: RECEIVED PT FROM REGISTERED ROUTE ASSOCIATE NURSE, JORDAN. PT CAME WITH CONDOM CATH. BLEEDING NOTED IN PENIS AND WAS INFORMED THAT F/C WAS ATTEMPTED BUT THERE WAS RESISTANCE. PT HAS 3 IV SITES: R WRIST #18G, R HAND 18G, AND R HAND 24G. PT ALSO ON SIMPLE FACE MASK AT 10L AND IS TOLERATING WELL. PT HAS G TUBE SITE AND IS CURRENTLY CLAMPED. WAS ENDORSED THAT PT RECEIVED 2.5 L OF NS, 3.37 ZOSYN, 1 GM OF VANCO, AND TYLENOL WAS GIVEN. HOB ELEVATED. CALL LIGHT WITHIN PT'S REACH. BED KEPT IN LOW, LOCKED POSITION, AND SIDE RAILS X 2 UP. WILL CONTINUE TO MONITOR PT.
--- NOTE | 2017-07-27 03:45 | NUR ---
pt transported to tele bed without incident
--- NOTE | 2017-07-27 04:18 | NUR ---
FUR PLUCKER NOTES: PAGED EPIC. AWAITING FOR ADMISSION ORDERS.
--- NOTE | 2017-07-27 04:20 | NUR ---
ELECTRONIC SCALE ASSEMBLER AND TESTER NOTES: SPOKE TO DR. OLIVIER. HE SAID HE WILL PUT THE ORDERS IN.
--- NOTE | 2017-07-27 04:56 | NUR ---
PATTERN GENERATOR OPERATOR NOTES: STILL AWAITING FOR DR. OLIVIER TO PUT IN ADMISSION ORDERS. ANOTHER NURSE CONTACTED HIM WELL FOR ANOTHER PT'S ADMISSION ORDERS.
--- NOTE | 2017-07-27 05:19 | NUR ---
CO TEACHER NOTES: PAGED EPIC AGAIN. AWAITING FOR CALL BACK / ADMITTING ORDERS.
--- NOTE | 2017-07-27 06:02 | NUR ---
SWING SAW OPERATOR NOTES: SPOKE WITH DR. OLIVIER AND HE SAID HE WILL PUT IN THE ADMITTING ORDERS WITHIN THE HOUR.
--- NOTE | 2017-07-27 06:50 | NUR ---
DISCOUNT CLERK NOTES: DR. OLIVIER SAID HE WILL PUT IN THE ADMISSION ORDERS IN 10 MIN.
[2017-07-27 06:54] VITALS: BP 105/54
--- NOTE | 2017-07-27 07:30 | NUR ---
CONCRETE PUDDLER CLOSING NOTES: ADMISSION ORDERS JUST RECEIVED. PT HAS CONDOM CATH AND IS ATTACHED TO DRAINAGE BAG. PT HAS 3 IV SITES: R WRIST #18G, R HAND 18G, AND R HAND 24G. ALL PATENT AND INTACT. PT ALSO ON SIMPLE FACE MASK AT 10L AND IS TOLERATING WELL. PT HAS G TUBE SITE AND IS CURRENTLY CLAMPED. HOB ELEVATED. CALL LIGHT WITHIN PT'S REACH. BED KEPT IN LOW, LOCKED POSITION, AND SIDE RAILS X 2 UP. ENDORSED TO AM NURSE FOR ASHLEY.
[2017-07-27 07:32] LABS: BASOPHILS # (AUTO) 0.1 /CMM (0.0-0.2); BASOPHILS % (AUTO) 0.4 % (0.0-2.0); EOSINOPHILS # (AUTO) 0.1 /CMM (0.0-0.7); EOSINOPHILS % (AUTO) 0.4 % (0.0-6.0); HEMATOCRIT 37 % (39-51); HEMOGLOBIN 11.9 g/dL (13.5-17.5); LYMPHOCYTES # (AUTO) 3.6 /CMM (0.8-4.8); LYMPHOCYTES % (AUTO) 21.3 % (20.0-44.0); MEAN CORPUSCULAR HEMOGLOBIN 29 PG (26.0-33.0); MEAN CORPUSCULAR HGB CONC 32 g/dl (31.0-36.0); MEAN CORPUSCULAR VOLUME 91 fL (80-96); MONOCYTES # (AUTO) 2.1 /CMM (0.1-1.30); MONOCYTES % (AUTO) 12.1 % (2.0-12.0); NEUTROPHILS # (AUTO) 11.1 /CMM (1.8-8.9); NEUTROPHILS % (AUTO) 65.8 % (43.0-81.0); PLATELET COUNT (AUTO) 165 /CMM (150-450); RDW COEFFICIENT OF VARIATION 14.9 (11.5-15.0); RED BLOOD CELL COUNT(AUTO) 4.09 MIL/uL (4.5-6.0); WHITE BLOOD COUNT (AUTO) 16.9 K/uL (4.3-11.0)
[2017-07-27 08:02] LABS: ALANINE AMINOTRANSFERASE 30 U/L (12-78); ALBUMIN 2.3 g/dL (3.4-5.0); ALKALINE PHOSPHATASE 138 U/L (46-116); ASPARTATE AMINOTRANSFERASE 55 U/L (15-37); B-TYPE NATRIURETIC PEPTIDE 17841 PG/ML (0-125); BILIRUBIN,TOTAL 0.4 mg/dL (0.2-1.0); CALCIUM, SERUM 7.6 mg/dL (8.5-10.1); CARBON DIOXIDE 19 mmol/L (21-32); CHLORIDE 109 mmol/L (98-107); CREATININE 1.8 mg/dL (0.6-1.3); MAGNESIUM 2.9 mg/dL (1.8-2.4); PHOSPHORUS 3.5 mg/dL (2.5-4.9); POTASSIUM 3.6 mmol/L (3.5-5.1); SODIUM SERUM 142 mmol/L (136-145); TOTAL PROTEIN, SERUM 7.1 g/dL (6.4-8.2); UREA NITROGEN, BLOOD 53 mg/dL (7-18)
[2017-07-27 08:21] LABS: GLUCOSE 386 mg/dL (74-106)
[2017-07-27 08:35] LABS: TROPONIN I 0.269 ng/mL (0.00-0.056)
[2017-07-27 09:01] LABS: CHOLESTEROL 97 mg/dL (<200); HDL CHOLESTEROL 21 mg/dL (40-60); LDL 64 mg/dL (0-99); TRIGLYCERIDES 166 mg/dL (30-150)
--- NOTE | 2017-07-27 11:00 | NUR ---
CONDOM CATH LEAKING AND CHANGED.
--- NOTE | 2017-07-27 11:30 | NUR ---
ACCU-CHECK DONE BUT COULD NOT COVER WITH INSULIN NO T-FEEDING AND ONLY SALINE IV.UA AND URINE CULTURE SENT FROM F/CATH.
[2017-07-27 12:00] VITALS: BP 103/54
--- NOTE | 2017-07-27 12:00 | NUR ---
TRANSFERRED TO RM 105.ABY PER DR. HANSON ORDERS.REPORT TO DAJUAN.
--- NOTE | 2017-07-27 12:50 | NUR ---
RN NOTE RECEIVED PT OBTUNDED, DOES NOT OPEN EYES, ON MASK 10 L/MIN, SATURATION 94%, BREATHING FAST RR 30, DEEP, LABORED, G TUB IN PLACE, CLAMPED, ACCORDING TO REPORT TO KEEP PT NPO AND OFF FEEDING, VS STABLE, LUNGS CLEAR DIMINISHED, BOWEL SOUNDS PRESENT, SKIN PALE, COOL TO TOUCH. DIAPER IN PLACE, SAFETY MEASURES MAINTAINED CALL LIGHT WITHIN REACH. WILL CONTINUE TO MONITOR.
--- NOTE | 2017-07-27 14:59 | NUR ---
RN NOTE PT BREATHING FAST, LABORED, DR SMUMERS ASSESSED THE PT, ORDERED STAT ABGS, AND LET HIM KNOW ABOUT THE RESULTS. AND HEORDERED TO KEEP THE O 2 SAT ABOVE 90%. WILL MONITOR PT
[2017-07-27 15:15] LABS: ABG BASE EXCESS -5.4 mmol/L; ABG OXYGEN SATURATION 75.8 % (92.0-98.5); ABG PCO2 28.5 mmHg (35.0-45.0); ABG PH 7.414 (7.350-7.450); ABG PO2 40.1 mmHg (75.0-100.0); AaDO2 356.4 mmHg; COHb 0.1 % (0.5-1.5); MetHb 0.6 % (0.0-1.5); O2Hb 75.3 % (94.0-97.0); SITE, ABG Right Brachial
[2017-07-27 15:17] LABS: APPEARANCE,URINE SL CLOUDY (CLEAR); BILIRUBIN,URINE NEGATIVE (NEGATIVE); BLOOD, URINE 3+ Ery/uL (NEGATIVE); COLOR,URINE YELLOW (YELLOW); KETONES,URINE NEGATIVE (NEGATIVE); LEUKOCYTE ESTERASE ,URINE NEGATIVE (NEGATIVE); NITRITE, URINE NEGATIVE (NEGATIVE); PROTEIN,URINE NEGATIVE (NEGATIVE); UGLUCOSE 3+ mg/dL (NEGATIVE); UROBILINOGEN,URINE 0.2 EU/dL (0.2)
[2017-07-27 15:36] LABS: BACTERIA,URINE Rare /HPF (None Seen); RBC,URINE 21-50 /HPF (0-2); SQUAMOUS EPITHELIAL CELL,UR Rare /HPF (None Seen)
[2017-07-27 16:00] VITALS: BP 110/61
[2017-07-27 20:00] VITALS: BP 123/57
--- NOTE | 2017-07-27 21:00 | NUR ---
CO SUPERVISOR GROUNDS AND LANDSCAPE - REC'D PT. IN RM#105, OBTUNDED,APHASIC. ON 15L-NRB. PT.IS DNR/DNI STATUS. HEART MONITOR SHOWS ST/LOW 100'S/NO ECTOPY. SBP'S ARE 120'S. NO S/S OF PAIN NOTED. ALL PULSES PALPABLE, PEDALS ARE WEAK. PT.IS PEGGED/CLAMPED. DIAPERED. RT. WRIST PIV IS INFILTRATED AL - MOST/REMOVED IMMEDIATELY. PT.STILL HAS 2 PIV'S ON RT.THUMB & RT.HAND. BOTH PATENT TO FLUSH. PT. HAS 0.9%NS INFUSING AT 125 CC/HR VIA FLOWER PUMPS. CONT. POC.
[2017-07-28] VITALS: BP 109/53
[2017-07-28 04:00] VITALS: BP 100/48
--- NOTE | 2017-07-28 06:40 | NUR ---
ROTOR CASTING MACHINE OPERATOR - NO CHANGES FROM PREVIOUS ASSESSMENTS. PT.HAD A NEW CONDOM CATH PLACED ON HIM. TOTAL OF 200 CC UOP + INCONTINENCE INBETWEEN CONDOM CATHS. PT. REMAINS DNR/DNI STATUS. CONT. POC.
[2017-07-28 06:44] LABS: BASOPHILS % (AUTO) 0.2 % (0.0-2.0); EOSINOPHILS % (AUTO) 0.2 % (0.0-6.0); HEMATOCRIT 36 % (39-51); HEMOGLOBIN 11.5 g/dL (13.5-17.5); LYMPHOCYTES # (AUTO) 1.8 /CMM (0.8-4.8); LYMPHOCYTES % (AUTO) 10.1 % (20.0-44.0); MEAN CORPUSCULAR HEMOGLOBIN 29 PG (26.0-33.0); MEAN CORPUSCULAR HGB CONC 32 g/dl (31.0-36.0); MEAN CORPUSCULAR VOLUME 91 fL (80-96); MONOCYTES # (AUTO) 0.9 /CMM (0.1-1.30); NEUTROPHILS # (AUTO) 14.6 /CMM (1.8-8.9); NEUTROPHILS % (AUTO) 84.5 % (43.0-81.0); PLATELET COUNT (AUTO) 135 /CMM (150-450); RDW COEFFICIENT OF VARIATION 15.4 (11.5-15.0); RED BLOOD CELL COUNT(AUTO) 3.92 MIL/uL (4.5-6.0); WHITE BLOOD COUNT (AUTO) 17.3 K/uL (4.3-11.0)
[2017-07-28 06:46] LABS: CALCIUM, SERUM 8.2 mg/dL (8.5-10.1); CARBON DIOXIDE 20 mmol/L (21-32); CHLORIDE 119 mmol/L (98-107); GLUCOSE 171 mg/dL (74-106); MAGNESIUM 2.8 mg/dL (1.8-2.4); PHOSPHORUS 2.3 mg/dL (2.5-4.9); SODIUM SERUM 152 mmol/L (136-145); UREA NITROGEN, BLOOD 26 mg/dL (7-18)
[2017-07-28 06:49] LABS: TROPONIN I 0.158 ng/mL (0.00-0.056)
[2017-07-28 08:00] VITALS: BP_SYST 126; BP_SYST 148; BP_DIAS 60; BP_DIAS 68
[2017-07-28 09:56] LABS: BAND % (MANUAL) 25 % (0.0-5.0); LYMPHOCYTES % (MANUAL) 7 % (16-48); MONOCYTES % (MANUAL) 9 % (0-11.0); NEUTROPHILS % (MANUAL) 59 (42-76)
--- NOTE | 2017-07-28 10:31 | NUR ---
RN NOTE' SEEN AND EXAMINED BY DR. HANSON. NEW VERBAL ORDER TO D/C IV NS @ 125/HR, START 1/ NS @ 100 ML/HR. ADDITIONAL VERBAL ORDER NPO XEPT MEDS.
--- NOTE | 2017-07-28 12:06 | NUR ---
RN NOTE POOR VENOUS ACCESS, ATTEMPTED 3 STARTS WITH CHARGE NURSE, TO NO AVAIL. DR. HANSON MADE AWARE AND GAVE TELEPHONE ORDER FOR MIDLINE INSERTION, NURSING RING STAMPER MADE AWARE AND STATED INSERTION SCHEDULED AFTER 1500. MADE AWARE PATIENT NOT RECEIVING IV FLUIDS AND MISSING 1200 ZOSYN DOSE.
[2017-07-28 16:00] VITALS: BP 144/57
--- NOTE | 2017-07-28 18:00 | NUR ---
RN NOTE MIDLINE INSERTED AT CALVIN 20 G AT THIS TIME. FLUIDS RESUMED. CURRENTLY PATIENT MOVES TO LOCALIZED TOUCH, DOES NOT OPEN EYES- MD IS AWARE. BREATHING ON ROOM AIR AND O2 SAT IS 94%.
--- NOTE | 2017-07-28 19:20 | NUR ---
RN MS INITIAL NOTE PT RECEIVED IN NO ACUTE DISTRESS AT THIS TIME. PT IS NONVERBAL (OBTUNDED). PT HAS A PEG THAT IS CLAMPED. CONDOM CATH IS INTACT CLEAN AND DRAINING URINE. PT IS CURRENTLY NPO BUT HAVING FLUIDS RUN THROUGH NEW CALVIN MIDLINE 20G. PT WILL HAVE CHEST CT DONE SOON FOR LUNG MASS. WILL CONTINUE TO ENSURE SAFETY AND COMFORT MEASURES.
[2017-07-28 20:00] VITALS: BP 114/58
[2017-07-29 04:00] VITALS: BP 144/61
--- NOTE | 2017-07-29 05:49 | NUR ---
RN MS CLOSING NOTE PT REMAINS IN NO ACUTE DISTRESS AT THIS TIME. 02 WAS PLACED AT 4L WITH ADEQUATE 02 SAT. EARLIER IN THE SHIFT THE 02 WAS TAKEN OFF BUT THE PT DID NOT RESPOND WELL. ALL DUE MEDICATIONS WERE TOLERATED. PT CONDOM CATH DRAINING URINE. CALVIN MIDLINE IS INTACT CLEAN RUNNING FLUIDS. WILL ENDORSE CARE TO AM NURSE.
[2017-07-29 06:43] LABS: CALCIUM, SERUM 8.3 mg/dL (8.5-10.1); CARBON DIOXIDE 22 mmol/L (21-32); CHLORIDE 121 mmol/L (98-107); CREATININE 0.9 mg/dL (0.6-1.3); GLUCOSE 170 mg/dL (74-106); PHOSPHORUS 2.2 mg/dL (2.5-4.9); POTASSIUM 4.1 mmol/L (3.5-5.1); SODIUM SERUM 155 mmol/L (136-145); UREA NITROGEN, BLOOD 23 mg/dL (7-18)
[2017-07-29 08:00] VITALS: BP 121/44
--- NOTE | 2017-07-29 11:34 | NUR ---
rn note dr. silva gave verbal orders to start tube feeding per dietary recommendation
[2017-07-29 16:00] VITALS: BP 134/57
--- NOTE | 2017-07-29 16:49 | NUR ---
RN NOTE DR. HANSON MADE AWARE THAT PATIENT'S SISTER ADITI WANTS MD TO CALL REGARDING PLAN OF CARE. SAID OK.
--- NOTE | 2017-07-29 19:10 | NUR ---
RN OPENING NOTES RECEIVED REPORT FROM AM RN. PATIENT IN BED, NON-VERBAL, OBTUNDED. BREATHING EVEN AND UNLABORED, ON O2 2L VIA NC. NO SOB OR RESPIRATORY DISTRESS NOTED. PULSES PRESENT. LEFT UPPER ARM MIDLINE PATENT W/ DRESSING CDI & IVF 1/2 NS @ 100 ML/HR. CONDOM CATH INTACT AND DRAINING YELLOW URINE. NO S/S OF ANY PAIN OR DISCOMFORT @ THIS TIME. SAFETY MEASURES IN PLACE W/ SIDE RAILS UP, BED LOCKED IN LOWEST POSITION. WILL CONTINUE TO MONITOR.
--- NOTE | 2017-07-29 19:12 | NUR ---
END OF SHIFT BREATHING EVEN AND UNLABORED ON ROOM AIR O2 SAT 95%. PATIENT OCCASIONALLY MOVED ARMS. NON-VERBAL, OCCASIONALLY OPENS EYES. FAMILY AND DR. HANSON SPOKE AT LENGTH ABOUT PLAN OF CARE. PATIENT WAS PROVIDED FREQUENT DIAPER CHANGES, PROM AND ADL CARE THIS SHIFT. NO COMPLICATIONS WITH MIDLINE. IV FLUIDS INFUSING ORDERED. HANDED OFF REPORT TO NIGHT NURSE.
[2017-07-29 20:00] VITALS: BP 132/53
[2017-07-30 04:00] VITALS: BP 130/59
--- NOTE | 2017-07-30 07:41 | NUR ---
star route mail driver OPENING NOTES RECEIVED REPORT FROM AM RN. PATIENT IN BED, NON-VERBAL, AWAKE , OBTUNDED. BREATHING EVEN AND UNLABORED, ON O2 2L VIA NC. NO SOB OR RESPIRATORY DISTRESS NOTED. PULSES PRESENT. LEFT UPPER ARM MIDLINE PATENT W/ DRESSING CDI & IVF 1/2 NS @ 100 ML/HR. CONDOM CATH INTACT AND DRAINING YELLOW URINE. NO S/S OF ANY PAIN OR DISCOMFORT @ THIS TIME. SAFETY MEASURES IN PLACE W/ SIDE RAILS UP, BED LOCKED IN LOWEST POSITION. WILL CONTINUE TO MONITOR
[2017-07-30 07:50] LABS: CALCIUM, SERUM 8.3 mg/dL (8.5-10.1); CARBON DIOXIDE 25 mmol/L (21-32); CHLORIDE 115 mmol/L (98-107); CREATININE 0.8 mg/dL (0.6-1.3); GLUCOSE 203 mg/dL (74-106); POTASSIUM 3.6 mmol/L (3.5-5.1); SODIUM SERUM 150 mmol/L (136-145); UREA NITROGEN, BLOOD 19 mg/dL (7-18)
[2017-07-30 08:00] VITALS: BP 123/51
[2017-07-30 12:57] LABS: BASOPHILS # (AUTO) 0.1 /CMM (0.0-0.2); BASOPHILS % (AUTO) 0.3 % (0.0-2.0); EOSINOPHILS # (AUTO) 0.4 /CMM (0.0-0.7); EOSINOPHILS % (AUTO) 2.2 % (0.0-6.0); HEMATOCRIT 33 % (39-51); HEMOGLOBIN 10.6 g/dL (13.5-17.5); LYMPHOCYTES # (AUTO) 2.2 /CMM (0.8-4.8); LYMPHOCYTES % (AUTO) 11.8 % (20.0-44.0); MEAN CORPUSCULAR HEMOGLOBIN 29 PG (26.0-33.0); MEAN CORPUSCULAR HGB CONC 32 g/dl (31.0-36.0); MEAN CORPUSCULAR VOLUME 91 fL (80-96); MONOCYTES # (AUTO) 0.8 /CMM (0.1-1.30); MONOCYTES % (AUTO) 4.5 % (2.0-12.0); NEUTROPHILS # (AUTO) 15.2 /CMM (1.8-8.9); NEUTROPHILS % (AUTO) 81.2 % (43.0-81.0); PLATELET COUNT (AUTO) 134 /CMM (150-450); RDW COEFFICIENT OF VARIATION 15.8 (11.5-15.0); RED BLOOD CELL COUNT(AUTO) 3.64 MIL/uL (4.5-6.0); WHITE BLOOD COUNT (AUTO) 18.7 K/uL (4.3-11.0)
[2017-07-30 14:00] VITALS: BP 108/49
[2017-07-30 16:00] VITALS: BP 108/49
--- NOTE | 2017-07-30 19:28 | NUR ---
PARAEDUCATOR CLOSING NOTES PATIENT AWAKE AND RESTING COMFORTABLY IN BED. A/O X 1. ALL NEEDS AND CARE ATTENDED WELL. ON 02 VIA N/C AT 2LPM, TOLERATING WELL WITH NO SOB NOTED. NO ACUTE CHANGES THROUGHOUT SHIFT. PATIENT ENDORSED TO THE CARBON SEQUESTRATION PLANT OPERATOR NURSE FOR [facility]SHLEY.
[2017-07-30 20:00] VITALS: BP 129/56
--- NOTE | 2017-07-30 20:00 | NUR ---
ms/rn opening notes PATIENT IN BED HOB ELEVATED, NON VERBAL BUT CAN RESPOND W/SOUNDS AND TOUCH. SKIN WARM TO TOUCH, ON IV ANTIBIOTIC VANCOMYCIN, LEFT MIDLINE WILL MONITOR, , ON GTUBE FEEDING W ZERO RESIDUAL RATE AT 40 AND WILL CHECK IF PATIENT TOLERATING GTUBE WELL.
--- NOTE | 2017-07-30 22:00 | NUR ---
ms/rn notes patient hob elevated, per md order to hold g-tube , patient had diarrhea and will collect stool to send for cdiff, iv atb administered and monitroing for any s/s of adverse effects.reposition for comfort.
[2017-07-30 22:30] VITALS: BP 129/56
[2017-07-31] VITALS: BP 129/56
[2017-07-31 04:00] VITALS: BP 143/59
[2017-07-31 04:20] VITALS: BP 129/56
--- NOTE | 2017-07-31 06:25 | NUR ---
MS/RN CLOSING NOTES PATIENT IN HOB ELEVATED, MONITORING FOR ANY S/S OF DISCOMFORT. REPOSITION FOR COMFORT AND ASSISTED WITH CARE.BS CHECKED GTUBE FEEDING WITHHELD PER MD ORDER DUE TO DIARRHEA AND RESUME IN 24 HOURS. STOOL COLLECTED. WILL ENDORSE TO AM RN .
[2017-07-31 07:41] LABS: CALCIUM, SERUM 8.1 mg/dL (8.5-10.1); CARBON DIOXIDE 25 mmol/L (21-32); CHLORIDE 114 mmol/L (98-107); CREATININE 0.7 mg/dL (0.6-1.3); GLUCOSE 206 mg/dL (74-106); POTASSIUM 3.4 mmol/L (3.5-5.1); SODIUM SERUM 149 mmol/L (136-145); UREA NITROGEN, BLOOD 16 mg/dL (7-18)
[2017-07-31 08:00] VITALS: BP 130/54
--- NOTE | 2017-07-31 08:00 | NUR ---
MS1/RN AM SHIFT INITIAL NOTES RECEIVED PT ASLEEP IN BED, NO ACUTE CHANGE OF CONDITION NOTED. PT NON-VERBAL, OPEN EYES, NO GRIMACING NOTED. ON 2L O2 VIA N/C SATURATING @ 97%, LUNG SOUNDS CLEAR. WITH ON GOING IV INFUSION OF D5 1/2NS @ 100CC/HR, IV SITES PATENT WITH NO S/S OF INFECTION. GT FEEDING ON HOLD PER PM NURSE, WILL RE-START FEEDING @ 1930 TODAY. GT FLUSHED, PATENT. PT IS COMFORTABLE AT THIS TIME. SCHEDULED AM MEDS TO BE GIVEN. CL WITHIN REACHED AND SAFETY MAINTAINED. ON GOING MONITORING.
[2017-07-31 11:33] LABS: BASOPHILS % (AUTO) 0.4 % (0.0-2.0); EOSINOPHILS # (AUTO) 0.3 /CMM (0.0-0.7); EOSINOPHILS % (AUTO) 2.6 % (0.0-6.0); HEMATOCRIT 33 % (39-51); HEMOGLOBIN 10.3 g/dL (13.5-17.5); LYMPHOCYTES # (AUTO) 2.2 /CMM (0.8-4.8); MEAN CORPUSCULAR HEMOGLOBIN 29 PG (26.0-33.0); MEAN CORPUSCULAR HGB CONC 32 g/dl (31.0-36.0); MEAN CORPUSCULAR VOLUME 91 fL (80-96); MONOCYTES # (AUTO) 0.8 /CMM (0.1-1.30); MONOCYTES % (AUTO) 6.7 % (2.0-12.0); NEUTROPHILS # (AUTO) 8.2 /CMM (1.8-8.9); NEUTROPHILS % (AUTO) 71.3 % (43.0-81.0); PLATELET COUNT (AUTO) 148 /CMM (150-450); RDW COEFFICIENT OF VARIATION 15.2 (11.5-15.0); RED BLOOD CELL COUNT(AUTO) 3.59 MIL/uL (4.5-6.0); WHITE BLOOD COUNT (AUTO) 11.5 K/uL (4.3-11.0)
--- NOTE | 2017-07-31 12:00 | NUR ---
MS1/RN ROUNDS - DR. HANSON CLARIFIED ORDER REGARDING HOLDING GT FEEDING UNTIL 1930 TONIGHT, PER MD TO CONTINUE FEEDING. WHILE CHECKING FOR GASTRIC RESIDUAL, GT TUBE NOTED WITH BLOOD TINGED GASTRIC CONTENT, NOTIFIED DR. HANSON TO TAKE A LOOK, WITH VERBAL ORDER TO LAVAGE TUBE WITH SALINE. NOTED WITH TINY BLOOD CLOT BUT NO ACUTE BLEEDING. CONTACTED DR. HANSON VIA PHONE EXCHANGE TO NOTIFY OF GASTRIC CONTENT AFTER LAVANGE, AWAITING FOR CALL BACK AND FURTHER ORDERS.
--- NOTE | 2017-07-31 12:35 | NUR ---
MS1/RN CALL BACK NOTIFIED DR. HANSON WITH RESULTS OF THE LAVAGE. WITH ORDERS TO CONTINUE FEEDING AND START PROTONIX 40MG VIA GT DAILY. ORDER NOTED AND CARRIED.
--- NOTE | 2017-07-31 15:30 | NUR ---
MS1/RN REPORT TO SNF CALLED [facility], REPORT GIVEN TO NURSE ACE RAMIREZ ([phone]). AWAITING FOR TRANSPORT PERSONNEL.
[2017-07-31 16:00] VITALS: BP 130/59
--- NOTE | 2017-07-31 16:30 | NUR ---
MS1/CONCAVER TO SNF REPORT GIVEN TO TRANSPORT PERSONNEL, DISCHARGE DOCUMENTS GIVEN TO TRANSPORT PERSONNEL, PT HAS NO PERSONAL BELONGINGS, INVENTORY LOG SIGNED OFF. IV SITES KEPT, FLUSHED, PATENT WITH NO S/S OF INFECTION. PT LEFT MS1 UNIT VIA GURNEY IN STABLE CONDITION.
== END 2017-07-31 16:33 | DRG 871 ==
LOC: ER 01:24 → TELE 03:08 → MED 09:00 → TELE-TD 12:13 → MEDSG1 07-28 09:09
PROVIDERS: ADMIT Internal Medicine; ATTEND Internal Medicine
PROC: 05H633Z Insertion of Infusion Device into Left Subclavian Vein, Percutaneous Approach (ICD-10-PCS; principal; 2017-07-28)
PROC: B547ZZA Ultrasonography of Left Subclavian Vein, Guidance (ICD-10-PCS; 2017-07-28)
DX: A41.9 Sepsis, unspecified organism (principal); J69.0 Pneumonitis due to inhalation of food and vomit; I21.4 Non-ST elevation (NSTEMI) myocardial infarction; J96.01 Acute respiratory failure with hypoxia; N17.0 Acute kidney failure with tubular necrosis; R65.21 Severe sepsis with septic shock; G93.41 Metabolic encephalopathy; E11.00 Type 2 diabetes mellitus with hyperosmolarity without nonketotic hyperglycemic-hyperosmolar coma (NKHHC); L89.151 Pressure ulcer of sacral region, stage 1; I50.33 Acute on chronic diastolic (congestive) heart failure; E87.0 Hyperosmolality and hypernatremia; E87.2 Acidosis; J98.11 Atelectasis; Z79.4 Long term (current) use of insulin; Z79.84 Long term (current) use of oral hypoglycemic drugs; Z79.82 Long term (current) use of aspirin; D63.8 Anemia in other chronic diseases classified elsewhere; E03.9 Hypothyroidism, unspecified; E11.65 Type 2 diabetes mellitus with hyperglycemia; E78.5 Hyperlipidemia, unspecified; F03.90 Unspecified dementia, unspecified severity, without behavioral disturbance, psychotic disturbance, mood disturbance, and anxiety; I10 Essential (primary) hypertension; I25.10 Atherosclerotic heart disease of native coronary artery without angina pectoris; I25.5 Ischemic cardiomyopathy; K21.9 Gastro-esophageal reflux disease without esophagitis; L30.4 Erythema intertrigo; Z66 Do not resuscitate; F09 Unspecified mental disorder due to known physiological condition; H54.8 Legal blindness, as defined in USA
CPT/HCPCS: 36415; 36569; 36600; 71010-TC; 71250-TC; 80048-TC; 80053-TC; 80061-TC; 80076-TC; 80202-TC; 81000-TC; 82010-TC; 82803-TC; 82962-TC; 83605-TC; 83735-TC; 83880; 84100-TC; 84484-TC; 85025-TC; 85730-TC; 87040-TC; 87081-TC; 87086-TC; 93307-TC; A4349; A4606; A6402; C1751; J1815; J2543; J3370; J3490; J7030; J7040; J7060; Z7610